=== PATIENT | male | born 1960 | race Caucasian/White ===

== ENCOUNTER 2016-08-10 01:24 | Emergency (ER) | payer BC ==
[~2016-08-10] VITALS: Ht 157.5 cm; Wt 69.4 kg
[2016-08-10 04:09] VITALS: BP 125/76
== END 2016-08-10 04:09 | disposition home or self-care (01) ==
LOC: ED 01:24
DX: S39.011A Strain of muscle, fascia and tendon of abdomen, initial encounter (principal); X58.XXXA Exposure to other specified factors, initial encounter; Y93.89 Activity, other specified; Y92.89 Other specified places as the place of occurrence of the external cause; Y99.8 Other external cause status
CPT/HCPCS: J1885